=== PATIENT | female | born 1980 | race African-American/Black ===

== ENCOUNTER 2024-11-05 17:09 | Emergency (ER) | payer BC ==
[2024-11-05] MEDS ORDERED: Ibuprofen 600 MG TAB ONE (17:28)
[2024-11-05] MEDS ORDERED: Acetaminophen 500 MG TAB ONE (17:29)
== END 2024-11-05 18:20 | disposition home or self-care (01) ==
LOC: MADERS 17:09
DX: J06.9 Acute upper respiratory infection, unspecified (principal)
CPT/HCPCS: 87081; 87428; 87430; 99283